=== PATIENT | male | born 1995 | race American Indian/Alaskan Native ===

== ENCOUNTER 2017-08-19 20:24 | Emergency (ER) | payer SELFPAY ==
[2017-08-20] MEDS ORDERED: MOTRIN ONE (00:03)
--- NOTE | 2017-08-20 01:33 | Emergency Department Report ---
ED Male HPI - General Chief complaint: Dizziness Stated complaint: COLD Time Seen by Provider: 08/20/17 01:14 Source: patient Mode of arrival: Ambulatory Limitations: No Limitations - History of Present Illness Initial comments: 22-year-old male past medical history genital herpes presents with complaint of slight right inguinal lymphadenopathy. Patient states he tested for HIV at [facility] 3 days ago and was negative. States he may have had a herpes outbreak 2 weeks ago. Denies fevers chills nausea vomiting palpitations abdominal pain dizziness headache. Patient is fully lucid awake alert and oriented 3. Denies any dysuria hematuria or penile discharge or increased urinary frequency. Denies any testicular pain or swelling. Denies any disseminated rash. Pt states that he does not actually have dizziness this is a cover story he told triage as he was embarrassed to divulge why he was actually here [place] JUNIOR Complaint: groin pain Onset/Timin -: week(s) Location: right inguinal region Severity: mild Severity scale (0 -10): 2 Quality: dull Consistency: intermittent Improves with: none Worsens with: none - Related Data Previous Rx's Medication Instructions Recorded Last Taken Type Acyclovir [Zovirax Cap] 200 mg PO 5XD #25 cap 08/20/17 Unknown Rx Ibuprofen [Motrin] 800 mg PO Q8HR PRN #20 tablet 08/20/17 Unknown Rx Allergies Allergy/AdvReac Type Severity Reaction Status Date / Time No Known Allergies Allergy Verified 08/19/17 21:05 ED Review of Systems ROS: Stated complaint: COLD Other details as noted in HPI Genitourinary: as per HPI ED Past Medical Hx - Past Medical History Previous Medical History?: No - Surgical History Past Surgical History?: No - Social History Smoking Status: Never Smoker Substance Use Type: Alcohol, Marijuana - Medications Home Medications: Home Medications Medication Instructions Recorded Confirmed Last Taken Type Acyclovir [Zovirax Cap] 200 mg PO 5XD #25 cap 08/20/17 Unknown Rx Ibuprofen [Motrin] 800 mg PO Q8HR PRN #20 tablet 08/20/17 Unknown Rx ED Physical Exam - General Limitations: No Limitations General appearance: alert, in no apparent distress - Head Head exam: Present: atraumatic, normocephalic - Eye Eye exam: Present: normal appearance - ENT ENT exam: Present: mucous membranes moist - Neck Neck exam: Present: normal inspection - Respiratory Respiratory exam: Present: normal lung sounds bilaterally. Absent: respiratory distress - Cardiovascular Cardiovascular Exam: Present: regular rate, normal rhythm. Absent: systolic murmur, diastolic murmur, rubs, gallop - GI/Abdominal GI/Abdominal exam: Present: soft, normal bowel sounds - Rectal Rectal exam: Present: deferred - exam: Present: normal inspection - Expanded Exam Expanded exam: Inguinal Lymphadenopathy: Right (minimal right inguinal adenopathy. There is no testicular tenderness or hernia on exam), Cremasteric Reflex Present : Left, Right image: 1 - Slight inguinal adenopathy here - Extremities Exam Extremities exam: Present: normal inspection - Back Exam Back exam: Present: normal inspection - Neurological Exam Neurological exam: Present: alert, oriented X3 - Psychiatric Psychiatric exam: Present: normal affect, normal mood - Skin Skin exam: Present: warm, dry, intact, normal color. Absent: rash ED Course Vital Signs 08/19/17 21:05 Temperature 98.5 F Pulse Rate 89 Respiratory 20 Rate Blood Pressure 115/78 O2 Sat by Pulse 98 Oximetry ED Medical Decision Making - Medical Decision Making A/P: Mild right inguinal adenopathy, herpes outbreak, concern for STD 1-referred patient to health department and [facility] 2-Motrin when necessary for adenopathy, acyclovir for herpes outbreak 3-he states he was recently tested tested negative for HIV 4- Critical care attestation.: If time is entered above; I have spent that time in minutes in the direct care of this critically ill patient, excluding procedure time. ED Disposition Clinical Impression: Inguinal lymphadenopathy Disposition: DC- TO HOME OR SELFCARE Is pt being admited?: No Does the pt Need Aspirin: No Condition: Stable Instructions: Lymphadenopathy (ED), Genital Herpes Simplex (ED) Prescriptions: Acyclovir [Zovirax Cap] 200 mg PO 5XD #25 cap Ibuprofen [Motrin] 800 mg PO Q8HR PRN #20 tablet PRN Reason: Pain , Severe (7-10) Referrals: [facility] [Provider Group] - 3-5 Days [facility] [Outside] - 3-5 Days [facility] [Outside] - 3-5 Days Forms: Work/School Release Form(ED) Time of Disposition: 01:31
[2017-08-20 01:55] VITALS: BP 114/82
== END 2017-08-20 01:54 | disposition home or self-care (01) ==
LOC: ED 20:24
DX: R59.0 Localized enlarged lymph nodes (principal); F12.10 Cannabis abuse, uncomplicated
CPT/HCPCS: 99282